=== PATIENT | male | born 1990 | race Caucasian/White ===

== ENCOUNTER 2017-05-01 09:32 | Emergency (ER) | payer OTHER ==
[2017-05-01 09:44] VITALS: BP 134/74; PULSE 67; TEMP 98.2; BMI 39.9
--- NOTE | 2017-05-01 10:24 | PDOC ---
History of Present Illness - General Chief Complaint: Eye Problem Stated Complaint: RT EYE PAIN Time Seen by Provider: 05/01/17 10:23 History Source: Patient Exam Limitations: No Limitations - History of Present Illness Initial Comments: CHIEF COMPLAINT: 26 y/o male with no significant PMH c/o right eye pain x 3 days. HISTORY OF PRESENT ILLNESS: The patient states it hurts the most when he looks up with his right eye. He denies trauma to eye, seeing spots, blurry vision, dry eye, feeling of foreign body in his eye. The patient does not wear contact lenses. Vital signs on arrival are within normal limits. REVIEW OF SYSTEMS: GENERAL/CONSTITUTIONAL: No fever/chills. No weakness. No weight change. HEAD, EYES, EARS, NOSE AND THROAT: No change in vision. No ear pain or discharge. No sore throat. +right eye pain SKIN: No rash or easy bruising. NEUROLOGIC: No headache, vertigo, loss of consciousness, or loss of sensation. PHYSICAL EXAM: GENERAL: The patient is awake, alert, and fully oriented, in no acute distress. HEAD: Normal with no signs of trauma. ENT: Pupils equal, round and reactive to light, extraocular movements intact, sclera anicteric, conjunctiva clear. No entrapment. Wood's lamp exam reveals no corneal abrasions or ulcerations. Distal portion of right upper lid with small internal hordeolum that is TTP. EXTREMITIES: Normal range of motion, no edema. Past History - Past Medical History Allergies/Adverse Reactions: Allergies Allergy/AdvReac Type Severity Reaction Status Date / Time methylphenidate HCl AdvReac Verified 05/01/17 09:40 [From Ritalin] Home Medications: Ambulatory Orders Hydrocortisone 2.5% Lotion [Hytone 2.5% Lotion -] 1 applic TP BID #1 bottle 09/11 Prednisone [Deltasone -] 60 mg PO DAILY #42 tablet 04/06/16 Skin Cleanser Combination No.8 [Zanfel] 1 applic TP TID #1 cleanser 04/06/16 Erythromycin 0.5% Eye Ointment [Erythromycin 0.5% Eye Ointment -] 1 applic OS TID #1 tube 05/01/17 Asthma: Yes - Psycho/Social/Smoking Cessation Hx Anxiety: No Suicidal Ideation: No Smoking Status: Yes Smoking History: Current every day smoker Have you smoked in the past 12 months: Yes Number of Cigarettes Smoked Daily: 5 Information on smoking cessation initiated: No 'Breaking Loose' booklet given: 03/13/16 Hx Alcohol Use: No Drug/Substance Use Hx: No Substance Use Type: None *Physical Exam - Vital Signs Last Vital Signs Temp Pulse Resp BP Pulse Ox 98.2 F 67 19 134/74 98 05/01/17 09:40 05/01/17 09:40 05/01/17 09:40 05/01/17 09:40 05/01/17 09:40 Medical Decision Making - Medical Decision Making A/P: 26 y/o male with right upper hordeolum. Will send rx for erythro eye ointment. Suggested he use for comfort. Also instructed him to apply hot compresses to affected eye 4-5 times per day to help with symptoms. Instructed pt to f/u with special procedures nurse within 1 week if no improvement in symptoms and provided a referral. The patient verbalizes understanding of all instructions, has no further questions and is awaiting discharge. *DC/Admit/Observation/Transfer Diagnosis at time of Disposition: Internal hordeolum of right eye Qualifiers: Eyelid: upper Qualified Code(s): H00.021 - Hordeolum internum right upper eyelid - Discharge Dispostion Disposition: HOME Condition at time of disposition: Good - Prescriptions Prescriptions: Erythromycin 0.5% Eye Ointment [Erythromycin 0.5% Eye Ointment -] 1 applic OS TID #1 tube - Referrals Referrals: Ingrid Corona MD [Primary Care Provider] - Sia Olvera MD [Staff Physician] - (Probate Paralegal) - Patient Instructions Printed Discharge Instructions: DI for Hordeolum Additional Instructions: Discharge Instructions: -Use eye ointment to help with discomfort -Apply hot compresses 4-5 times per day to affected eye -If no improvement in 1 week please call the referred eye doctor for follow up appointment -Return to the ER with any worsening or concerning symptoms
== END 2017-05-01 10:44 | disposition home or self-care (01) ==
LOC: JERFT 09:32
DX: H00.021 Hordeolum internum right upper eyelid (principal); J45.909 Unspecified asthma, uncomplicated; F17.210 Nicotine dependence, cigarettes, uncomplicated
CPT/HCPCS: 99281-25

== ENCOUNTER 2017-11-12 21:19 | Emergency (ER) | payer OTHER ==
[2017-11-12 21:27] VITALS: BP 136/74; PULSE 102; TEMP 97.4; BMI 40.7
--- NOTE | 2017-11-12 21:27 | PDOC ---
Rapid Medical Evaluation Time Seen by Provider: 11/12/17 21:22 Medical Evaluation: Allergies Allergy/AdvReac Type Severity Reaction Status Date / Time methylphenidate HCl AdvReac Verified 05/01/17 09:40 [From Ritalin] 11/12/17 21:22 I have performed a brief in-person evaluation of this patient. The patient presents with a chief complaint of: lower abdominal pain with occasional brown diarrhea. denies bloody stools Pertinent physical exam findings: ABD: TTP LLQ extending into umbilicus I have ordered the following: labs, CT, UA The patient will proceed to the ED for further evaluation. Discharge Disposition - Diagnosis Abdominal pain - Referrals - Patient Instructions - Post Discharge Activity
[2017-11-12 21:45] LABS: BASO % 0.6 % (0-2.0); EOS % 0.8 % (0-4.5); HEMATOCRIT 47.3 % (35.4-49); HEMOGLOBIN 15.7 GM/dL (11.7-16.9); LYMPH % 32.4 % (8-40); MCH 27.9 pg (25.7-33.7); MCHC 33.3 g/dl (32.0-35.9); MEAN CELL VOLUME 83.7 fl (80-96); MEAN PLT VOLUME 7.3 fl (7.5-11.1); MONO % 5.1 % (3.8-10.2); NEUT % 61.1 % (42.8-82.8); PLATELET COUNT 339 K/MM3 (134-434); RBC 5.65 M/mm3 (4.00-5.60); RDW 13.8 % (11.9-15.9); WHITE BLOOD COUNT 13.9 K/mm3 (4.0-10.0)
[2017-11-12 22:04] LABS: URINE APPEARANCE CLEAR; URINE BILIRUBIN NEGATIVE (NEGATIVE); URINE BLOOD NEGATIVE (NEGATIVE); URINE COLOR STRAW; URINE GLUCOSE (UA) NEGATIVE (NEGATIVE); URINE KETONE NEGATIVE (NEGATIVE); URINE LEUK ESTERASE NEGATIVE (NEGATIVE); URINE NITRITE NEGATIVE (NEGATIVE); URINE PROTEIN NEGATIVE (NEGATIVE); URINE UROBILINOGEN NEGATIVE mg/dL (0.2-1.0)
--- NOTE | 2017-11-12 22:30 | PDOC ---
History of Present Illness - General Chief Complaint: Pain Stated Complaint: ABDOMINAL PAIN Time Seen by Provider: 11/12/17 21:22 - History of Present Illness Initial Comments: 11/12/17 22:19 CHIEF COMPLAINT: HISTORY OF PRESENT ILLNESS: 27 yo M with hx of asthma ("haven't had it since I was 14") presents to ED with LLQ abdominal pain and "swollen belly button" since yesterday. Patient denies any nausea, vomiting, diarrhea, or rectal bleeding, and states his last BM was today and was normal. 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 He reports that the pain is localized to the LLQ extending to umbilicus and that the pain is worse "when I am walking, like a 7 or 8." No recent travel or sick contacts. PAST MEDICAL HISTORY: Denies past medical history FAMILY HISTORY: Denies SOCIAL HISTORY: Denies tobacco, alcohol, illicit drug use. SURGICAL HISTORY: Denies ALLERGIES: No known drug allergies REVIEW OF SYSTEMS General/Constitutional: Denies fever or chills. Denies weakness, weight change. HEENT: Denies change in vision. Denies ear pain or discharge. Denies sore throat. Cardiovascular: Denies chest pain or shortness of breath. Respiratory: Denies cough, wheezing, or hemoptysis. Gastrointestinal: Denies nausea, vomiting, diarrhea or constipation. Denies rectal bleeding. Genitourinary: Denies dysuria, frequency, or change in urination. Musculoskeletal: Denies joint or muscle swelling or pain. Denies neck or back pain. Skin and breasts: Denies rash or easy bruising. Neurologic: Denies headache, vertigo, loss of consciousness, or loss of sensation. Psychiatric: Denies depression or anxiety. Endocrine: Denies increased thirst. Denies abnormal weight change. Hematologic/Lymphatic: Denies anemia, easy bleeding, or history of blood clots. Allergic/Immunologic: Denies hives or skin allergy. Denies latex allergy. PHYSICAL EXAM General Appearance: Well-appearing, appropriately dressed. No apparent distress , no intoxication. HEENT: EOMI, PERRLA, normal ENT inspection, normal voice, TMs normal, pharynx normal. No conjunctival pallor. No photophobia, scleral icterus. Neck: Supple. Trachea midline. No tenderness, rigidity, carotid bruit, stridor , lymphadenopathy, or thyromegaly. Respiratory/Chest: Lungs CTAB. No shortness of breath, chest tenderness, respiratory distress, accessory muscle use. No crackles, rales, rhonchi, stridor , wheezing, dullness Cardiovascular: RRR. S1, S2. No JVD, murmur, bradycardia, tachycardia. Vascular Pulses: Dorsalis-Pedis (R): 2+, Dorsalis-Pedis (L): 2+ Gastrointestinal/Abdominal: Normal bowel sounds. Abdomen soft, non-distended. No tenderness or rebound tenderness. No organomegaly, pulsatile mass, guarding , hernia, hepatomegaly, splenomegaly. Lymphatic: No adenopathy, tenderness. Musculoskeletal/Extremities: Normal inspection. FROM of all extremities, normal capillary refill. Pelvis Stable. No CVA tenderness. No tenderness to extremities, pedal edema, swelling, erythema or deformity. Integumentary: Appropriate color, dry, warm. No cyanosis, erythema, jaundice or rash Neurologic: commis chef II-XII intact. Fully oriented, alert. Appropriate mood/affect. Motor strength 5/5. No appreciable EOM palsy, facial droop or sensory deficit. Past History - Past Medical History Allergies/Adverse Reactions: Allergies Allergy/AdvReac Type Severity Reaction Status Date / Time methylphenidate HCl AdvReac Verified 11/12/17 21:25 [From Ritalin] Home Medications: Ambulatory Orders NK [No Known Home Medication] 11/12/17 Asthma: Yes COPD: No - Suicide/Smoking/Psychosocial Hx Smoking Status: Yes Smoking History: Current every day smoker Have you smoked in the past 12 months: Yes Number of Cigarettes Smoked Daily: 10 Information on smoking cessation initiated: No 'Breaking Loose' booklet given: 03/13/16 Hx Alcohol Use: No Drug/Substance Use Hx: No Substance Use Type: None *Physical Exam - Vital Signs Last Vital Signs Temp Pulse Resp BP Pulse Ox 97.4 F L 102 H 20 136/74 97 11/12/17 21:25 11/12/17 21:25 11/12/17 21:25 11/12/17 21:25 11/12/17 21:25 ED Treatment Course - LABORATORY CBC & Chemistry Diagram: 11/12/17 21:36 11/12/17 22:43 - ADDITIONAL ORDERS Additional order review: Laboratory Results 11/12/17 21:30 Urine Color Straw Urine Appearance Clear Urine pH 6.0 Ur Specific [place] 1.011 Urine Protein Negative Urine Glucose (UA) Negative Urine Ketones Negative Urine Blood Negative Urine Nitrite Negative Urine Bilirubin Negative Urine Urobilinogen Negative Ur Leukocyte Esterase Negative 11/12/17 21:36 RBC 5.65 H MCV 83.7 MCHC 33.3 RDW 13.8 MPV 7.3 L Neutrophils % 61.1 Lymphocytes % 32.4 Monocytes % 5.1 Eosinophils % 0.8 Basophils % 0.6 *DC/Admit/Observation/Transfer Diagnosis at time of Disposition: Abdominal pain Qualifiers: Abdominal location: periumbilical Qualified Code(s): R10.33 - Periumbilical pain Umbilical hernia Qualifiers: Obstruction and gangrene presence: without obstruction or gangrene Qualified Code(s): K42.9 - Umbilical hernia without obstruction or gangrene - Discharge Dispostion Disposition: HOME Condition at time of disposition: Stable Admit: No - Referrals Referrals: Cinthia Esteves MD [Staff Physician] - - Patient Instructions Printed Discharge Instructions: DI for Ventral Hernia Additional Instructions: You may taken Motrin for any residual pain. Please follow up with your primary care doctor for continued management. If you develop any new or worsening symptoms, please return to the ER. - Post Discharge Activity Forms/Work/School Notes: Back to Work
[2017-11-12] MEDS ORDERED: KETOROLAC TROMETHAMINE 30 MG/1 ML VIAL IVPUSH ONE (22:46)
[2017-11-12] MEDS ORDERED: SODIUM CHLORIDE 0.9% 1000 ML INFUS.BAG IV ONE (22:46)
[2017-11-12] MEDS ORDERED: KETOROLAC TROMETHAMINE 30 MG/1 ML VIAL ONE (22:51)
[2017-11-12 23:22] LABS: PROTHROMBIN TIME (PATIENT) 11.3 SEC (9.98-11.88)
[2017-11-12 23:58] LABS: ALBUMIN 3.5 g/dl (3.4-5.0); BILIRUBIN,TOTAL 0.2 mg/dL (0.2-1.0); CALCIUM 8.2 mg/dL (8.5-10.1); CHLORIDE 105 mmol/L (98-107); CO2 31 mmol/L (21-32); CREATININE 1.1 mg/dL (0.7-1.3); GLUCOSE,RANDOM 88 mg/dL (74-106); TOT PROT 7.2 g/dl (6.4-8.2)
[2017-11-13 00:11] LABS: ANION GAP 7 (8-16); BLOOD UREA NITROGEN 10 mg/dL (7-18); SGPT/ALT 54 U/L (12-78); SODIUM 143 mmol/L (136-145)
[2017-11-13 00:12] LABS: ALK PHOS 112 U/L (45-117)
[2017-11-13 00:14] LABS: POTASSIUM 3.8 mmol/L (3.5-5.1); SGOT/AST 25 U/L (15-37)
--- NOTE | 2017-11-13 12:30 | EKG ---
Test Reason : Blood Pressure : / mmHG Vent. Rate : 077 BPM Atrial Rate : 077 BPM P-R Int : 144 ms QRS Dur : 094 ms QT Int : 394 ms P-R-T Axes : 027 002 019 degrees QTc Int : 445 ms NORMAL SINUS RHYTHM NORMAL ECG WHEN COMPARED WITH ECG OF 24-OCT-2002 22:37, PREVIOUS ECG IS PRESENT Confirmed by VEE VALENZUELA MD ([id number]) on 11/13/2017 12:30:13 PM Referred By: Confirmed By:VEE VALENZUELA MD
== END 2017-11-13 03:11 | disposition home or self-care (01) ==
LOC: JER 21:19
PROC: 3E0333Z Introduction of Anti-inflammatory into Peripheral Vein, Percutaneous Approach (ICD-10-PCS; principal; 2017-11-12)
DX: K42.9 Umbilical hernia without obstruction or gangrene (principal)
CPT/HCPCS: 36415; 74177-TC; 80053; 81003; 85025; 85610; 87086; 93005; 93010; 99282-25; Q9967

== ENCOUNTER 2018-03-26 13:24 | Emergency (ER) | payer OTHER ==
[2018-03-26 13:32] VITALS: BP 128/86; PULSE 114; TEMP 98.6; BMI 34.1
--- NOTE | 2018-03-26 14:37 | PDOC ---
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 Patient denies any bites. Patient has no complaints. GENERAL/CONSTITUTIONAL: No fever, weakness. dizziness HEAD, EYES, EARS, NOSE AND THROAT: No change in vision. No ear pain or discharge. No sore throat. CARDIOVASCULAR: No chest pain RESPIRATORY: No shortness of breath or cough GASTROINTESTINAL: No pain, nausea, vomiting, diarrhea or constipation GENITOURINARY: No dysuria MUSCULOSKELETAL: No neck or back pain SKIN: No rash NEUROLOGIC: No headache, vertigo, loss of consciousness, or loss of sensation. GENERAL: The patient is awake, alert, and fully oriented, in no acute distress. HEAD: Normal with no signs of trauma. EYES: Pupils equal, round and reactive to light, sclera anicteric, conjunctiva clear. ENT: pharynx: no erythema, no exudate, uvula midline NECK: supple CHEST: clear, nontender, rr ABD: soft, nontender EXTREMITIES: Normal range of motion, no edema. NEUROLOGICAL: Normal speech, normal gait. SKIN: Warm, Dry Past History - Past Medical History Allergies/Adverse Reactions: Allergies Allergy/AdvReac Type Severity Reaction Status Date / Time methylphenidate HCl AdvReac Verified 03/26/18 13:26 [From Ritalin] Home Medications: Ambulatory Orders NK [No Known Home Medication] 11/12/17 Asthma: Yes COPD: No - Suicide/Smoking/Psychosocial Hx Smoking Status: Yes Smoking History: Current every day smoker Have you smoked in the past 12 months: Yes Number of Cigarettes Smoked Daily: 10 Information on smoking cessation initiated: Yes 'Breaking Loose' booklet given: 03/26/18 Hx Alcohol Use: No Drug/Substance Use Hx: No Substance Use Type: None *Physical Exam - Vital Signs Last Vital Signs Temp Pulse Resp BP Pulse Ox 98.6 F 114 H 18 128/86 100 03/26/18 13:26 03/26/18 13:26 03/26/18 13:26 03/26/18 13:26 03/26/18 13:26 Medical Decision Making - Medical Decision Making 03/26/18 14:33 Patient who had bugs underclothing, questionable ticks after work, no bites, who was worried and wanted to be evaluated. *DC/Admit/Observation/Transfer Diagnosis at time of Disposition: Environmental exposure - Discharge Dispostion Disposition: HOME Condition at time of disposition: Stable Decision to Admit order: No - Referrals - Patient Instructions Additional Instructions: You were not bitten by any of the insects or ticks that you found. If you have fever or feel ill, you should be reevaluated - Post Discharge Activity
== END 2018-03-26 14:51 | disposition home or self-care (01) ==
LOC: JERFT 13:24 → JER 13:24 → JERFT 14:51
DX: T75.89XA Other specified effects of external causes, initial encounter (principal); X58.XXXA Exposure to other specified factors, initial encounter; Y93.89 Activity, other specified; Y92.89 Other specified places as the place of occurrence of the external cause
CPT/HCPCS: 99281-25

== ENCOUNTER 2018-04-16 08:40 | Emergency (ER) | payer OTHER ==
[2018-04-16 08:48] VITALS: BP 120/72; PULSE 86; TEMP 98; BMI 34.1
[2018-04-16] MEDS ORDERED: KETOROLAC TROMETHAMINE 60 MG/2 ML VIAL IM ONE (08:58)
--- NOTE | 2018-04-16 09:13 | PDOC ---
History of Present Illness - General Chief Complaint: Eye Problem Stated Complaint: HEADACHE, EYE PAIN Time Seen by Provider: 04/16/18 08:52 History Source: Patient Exam Limitations: No Limitations - History of Present Illness Initial Comments: 04/16/18 08:59 27 yr male with c/o headache and sensitivity to light started 1 week ago. Pt states bilateral temporal pain with pain behind eyes, pt noticed red eye this AM. neg nausea or vomiting, pt recently was written a new prescription for eyeglasses but has not been wearing them. Pt has history of ADHD asthma not on meds currently. no fever no recent head injury. Severity: mild Past History - Past Medical History Allergies/Adverse Reactions: Allergies Allergy/AdvReac Type Severity Reaction Status Date / Time methylphenidate HCl AdvReac Verified 04/16/18 08:45 [From Ritalin] Home Medications: Ambulatory Orders Naproxen [Naprosyn] 500 mg PO BID PRN #14 tablet 04/16/18 Asthma: Yes COPD: No - Suicide/Smoking/Psychosocial Hx Smoking Status: Yes Smoking History: Current every day smoker Have you smoked in the past 12 months: Yes Number of Cigarettes Smoked Daily: 5 Information on smoking cessation initiated: Yes 'Breaking Loose' booklet given: 03/13/16 Hx Alcohol Use: Yes (occasional) Drug/Substance Use Hx: No Substance Use Type: None Review of Systems - Review of Systems Able to Perform ROS?: Yes Is the patient limited Kyrgyz proficient: No Constitutional: No: Symptoms Reported HEENTM: Yes: Eye Pain, Recent change in vision *Physical Exam - Vital Signs Last Vital Signs Temp Pulse Resp BP Pulse Ox 98 F 86 16 120/72 99 04/16/18 08:45 04/16/18 08:45 04/16/18 08:45 04/16/18 08:45 04/16/18 08:45 - Physical Exam General Appearance: Yes: Nourished, Appropriately Dressed HEENT: positive: EOMI, GEE, Other (right eye bloodshot no discharge ) Neck: positive: Supple. negative: Tender Respiratory/Chest: positive: Lungs Clear, Normal Breath Sounds Cardiovascular: positive: Regular Rhythm, Regular Rate Musculoskeletal: positive: Normal Inspection Extremity: positive: Normal Capillary Refill, Normal Inspection, Normal Range of Motion Integumentary: positive: Normal Color, Dry, Warm Neurologic: positive: Fully Oriented, Alert, Normal Mood/Affect, Normal Response , Motor Strength 5/5 ED Treatment Course - RADIOLOGY Radiology Studies Ordered: Category Date Time Status HEAD CT WITHOUT CONTRAST [CT] Stat CT Scan 04/16/18 08:58 Ordered Medical Decision Making - Medical Decision Making 04/16/18 09:03 cc: bilateral congregational headache pain behind eyes with some light sensitivity pt denies fever no neck pain will send for head ct if negative will give toradol IM for headache dc home strict follow up 04/16/18 09:25 *DC/Admit/Observation/Transfer Diagnosis at time of Disposition: Headache Qualifiers: Headache type: tension-type Headache chronicity pattern: acute headache Intractability: not intractable Qualified Code(s): G44.209 - Tension-type headache, unspecified, not intractable - Discharge Dispostion Disposition: HOME Condition at time of disposition: Good - Prescriptions Prescriptions: Naproxen [Naprosyn] 500 mg PO BID PRN #14 tablet PRN Reason: Headache - Referrals Referrals: Onur Moss MD [Staff Physician] - - Patient Instructions Additional Instructions: drink pleanty of fluids take naprosyn as directed follow with the neurologist for headaches if they continue or worsen use the prescription eyeglasses you have been given return to the ER for any worsening symptoms - Post Discharge Activity
[2018-04-16] MEDS ORDERED: KETOROLAC TROMETHAMINE 60 MG/2 ML VIAL ONE (09:53)
== END 2018-04-16 10:01 | disposition home or self-care (01) ==
LOC: JER 08:40
PROC: 3E0233Z Introduction of Anti-inflammatory into Muscle, Percutaneous Approach (ICD-10-PCS; principal; 2018-04-16)
DX: G44.209 Tension-type headache, unspecified, not intractable (principal); J45.909 Unspecified asthma, uncomplicated; F90.9 Attention-deficit hyperactivity disorder, unspecified type
CPT/HCPCS: 70450-TC; 99281-25

== ENCOUNTER 2018-06-20 10:30 | Emergency (ER) | payer OTHER ==
[2018-06-20 10:35] VITALS: BP 127/72; PULSE 66; TEMP 97.6; BMI 32.4
--- NOTE | 2018-06-20 11:08 | PDOC ---
History of Present Illness - General Stated Complaint: ALLERGIC REACTION Time Seen by Provider: 06/20/18 10:52 History Source: Patient Exam Limitations: No Limitations - History of Present Illness Initial Comments: CHIEF COMPLAINT: 27 y/o afebrile male with no significant PMH c/o poison elda rash. HISTORY OF PRESENT ILLNESS: Patient works for [employer]. He states he noticed slight rash yesterday that is worse today. He denies all other symptoms. Vital signs on arrival are within normal limits. REVIEW OF SYSTEMS: GENERAL/CONSTITUTIONAL: No fever/chills. HEAD, EYES, EARS, NOSE AND THROAT: No change in vision. No ear pain or discharge. No sore throat. RESPIRATORY: No cough, wheezing, or hemoptysis. SKIN: itchy rash to arms NEUROLOGIC: No headache, vertigo, loss of consciousness, or loss of sensation. PHYSICAL EXAM: GENERAL: The patient is awake, alert, and fully oriented, in no acute distress. He is well appearing. HEAD: Normal with no signs of trauma. No angioedema. EXTREMITIES: Normal range of motion, no edema. NEUROLOGICAL: Normal speech, normal gait. CN II-XII grossly intact. SKIN: skin colored blisters on b/l arms. Past History - Past Medical History Allergies/Adverse Reactions: Allergies Allergy/AdvReac Type Severity Reaction Status Date / Time methylphenidate HCl AdvReac Verified 06/20/18 10:31 [From Ritalin] Home Medications: Ambulatory Orders Hydrocortisone 0.5% Cream [Hytone 0.5% Cream -] 1 applic TP BID #1 tube Methylprednisolone [Medrol Dose Jose Enrique] 4 mg PO ASDIR #21 tablet 06/20/18 Asthma: Yes COPD: No - Suicide/Smoking/Psychosocial Hx Smoking Status: Yes Smoking History: Current every day smoker Have you smoked in the past 12 months: Yes Number of Cigarettes Smoked Daily: 8 Information on smoking cessation initiated: Yes 'Breaking Loose' booklet given: 03/13/16 Hx Alcohol Use: No Drug/Substance Use Hx: No Substance Use Type: None *Physical Exam - Vital Signs Last Vital Signs Temp Pulse Resp BP Pulse Ox 97.6 F 66 16 127/72 98 06/20/18 10:32 06/20/18 10:32 06/20/18 10:32 06/20/18 10:32 06/20/18 10:32 Medical Decision Making - Medical Decision Making A/P: 27 y/o male with poison elda dermatitis. Will d/c with rx for medrol dose pack and topical hydrocortisone cream. Patient instructed to return to the ER with any worsening or concerning symptoms. The patient verbalizes understanding of all instructions, has no further questions and is awaiting discharge. *DC/Admit/Observation/Transfer Diagnosis at time of Disposition: Poison elda dermatitis - Discharge Dispostion Disposition: HOME Condition at time of disposition: Good - Referrals - Patient Instructions Printed Discharge Instructions: DI for Poison Elda Allergy Additional Instructions: Discharge Instructions: -2 prescriptions have been sent to your pharmacy for treatment of poison elda -Return to the ER with any worsening or concerning symptoms - Post Discharge Activity
== END 2018-06-20 11:42 | disposition home or self-care (01) ==
LOC: JERFT 10:30
DX: L23.7 Allergic contact dermatitis due to plants, except food (principal)
CPT/HCPCS: 99281-25

== ENCOUNTER 2018-07-08 19:54 | Emergency (ER) | payer OTHER ==
[2018-07-08 19:59] VITALS: BP 123/76; PULSE 107; TEMP 98.6; BMI 32.8
--- NOTE | 2018-07-08 20:33 | PDOC ---
History of Present Illness - General Chief Complaint: Rash Stated Complaint: BITE Time Seen by Provider: 07/08/18 20:25 - History of Present Illness Initial Comments: 27-year-old male without comorbidities presents for evaluation of a rash after bee sting which occurred yesterday. He has no other associated symptoms. 07/08/18 20:28 Past History - Past Medical History Allergies/Adverse Reactions: Allergies Allergy/AdvReac Type Severity Reaction Status Date / Time methylphenidate HCl AdvReac Verified 07/08/18 19:58 [From Ritalin] Home Medications: Ambulatory Orders Methylprednisolone [Medrol Dose Jose Enrique] 4 mg PO ASDIR #21 tablet 07/08/18 Asthma: Yes COPD: No - Suicide/Smoking/Psychosocial Hx Smoking Status: Yes Smoking History: Smoker current status UNK Have you smoked in the past 12 months: Yes Number of Cigarettes Smoked Daily: 8 Information on smoking cessation initiated: No 'Breaking Loose' booklet given: 03/13/16 Hx Alcohol Use: No Drug/Substance Use Hx: No Substance Use Type: None Review of Systems - Review of Systems Integumentary: Yes: Rash All Other Systems: Reviewed and Negative *Physical Exam - Vital Signs Last Vital Signs Temp Pulse Resp BP Pulse Ox 98.6 F 107 H 18 123/76 97 07/08/18 19:55 07/08/18 19:55 07/08/18 19:55 07/08/18 19:55 07/08/18 19:55 - Physical Exam Comments: HEAD: NC/AT EYES: Conjuntiva clear Ears: Canals and TM's normal NOSE: No d/c THROAT: Moist mucous membrances, oral pharanx clear, uvula midline NECK: Supple without adenopathy CARDIAC: S1 S2 LUNGS: CTA Full and Equal breath sounds ABDOMEN: Soft NT ND MS: Full ROM in all joints without edema NEUROLOGIC: No gross sensory or motor deficits, NVID SKIN: Normal color and temperature there is a rasied hive on the volar aspect of the L wrist and mild swelling without erythema, induration, or sensitivity on the volar aspect of the R forearm, 07/08/18 20:29 Medical Decision Making - Medical Decision Making Mild allergic reaction to bee sting. 07/08/18 20:30 *DC/Admit/Observation/Transfer Diagnosis at time of Disposition: Bee sting allergy - Discharge Dispostion Disposition: HOME Condition at time of disposition: Stable Decision to Admit order: No - Prescriptions Prescriptions: Methylprednisolone [Medrol Dose Jose Enrique] 4 mg PO ASDIR #21 tablet - Referrals Referrals: Jv Rich [Non Staff, Medical] - - Patient Instructions Printed Discharge Instructions: Insect Bites and Stings (Alternative Therapy), DI for Insect Bites and Stings Additional Instructions: Return to the ER should symptoms worsen or go unresolved Follow up with PCP in 1 -2 days. - Post Discharge Activity
== END 2018-07-08 20:35 | disposition home or self-care (01) ==
LOC: JERFT 19:54
DX: T63.441A Toxic effect of venom of bees, accidental (unintentional), initial encounter (principal); Y92.89 Other specified places as the place of occurrence of the external cause
CPT/HCPCS: 99281-25

== ENCOUNTER 2018-09-01 15:47 | Emergency (ER) | payer OTHER ==
[2018-09-01 15:54] VITALS: BP 127/77; PULSE 88; TEMP 98.5; BMI 31.6
--- NOTE | 2018-09-01 15:55 | PDOC ---
Rapid Medical Evaluation Chief Complaint: Headache Time Seen by Provider: 09/01/18 15:52 Medical Evaluation: Allergies Allergy/AdvReac Type Severity Reaction Status Date / Time methylphenidate HCl AdvReac Verified 07/08/18 19:58 [From Ritalin] 09/01/18 15:53 I have performed a brief in person evaluation of the patient. The patient presents with a CC of: SANTOS Pt has a SANTOS x 2-3 days. Pt denies hx of migraines, denies n/v. Pt denies thunderclap sensation prior to its initiation. Pt denies this being the worst SANTOS of his life. Pain is a 5/10 PE: Skin: No visible rash Lungs: Clear Heart:RRR MS: Moves all extremities without difficulty Neuro: Alert and oriented Psych: Appropriate affect I have ordered the following: nothing at this time. The patient will proceed to the [facility] for further evaluation. Discharge Disposition - Diagnosis Headache Qualifiers: Headache type: unspecified - Referrals - Patient Instructions - Post Discharge Activity
[2018-09-01] MEDS ORDERED: KETOROLAC TROMETHAMINE 60 MG/2 ML VIAL IM ONE (16:26)
[2018-09-01] MEDS ORDERED: ACETAMINOPHEN 500 MG TABLET (FP) PO ONE (16:26)
[2018-09-01] MEDS ORDERED: ACETAMINOPHEN 500 MG TABLET (FP) ONE (16:30)
--- NOTE | 2018-09-01 16:42 | PDOC ---
History of Present Illness - General Chief Complaint: Headache Stated Complaint: HEADACHE Time Seen by Provider: 09/01/18 15:52 - History of Present Illness Initial Comments: 09/01/18 16:28 28-year-old male without comorbidities presents for evaluation of headache and a painful mass behind his right ear 3 days. He states his headache is typical of his usual headaches he has not taken anything for pain his headache was not abrupt onset and is not the worst headache of his life he describes as a bandlike pressure around his head. The mass behind his right ear has been there for about 3 days as well and he states getting smaller he has no other associated symptoms. Past History - Past Medical History Allergies/Adverse Reactions: Allergies Allergy/AdvReac Type Severity Reaction Status Date / Time methylphenidate HCl AdvReac Verified 09/01/18 15:55 [From Ritalin] Asthma: Yes COPD: No - Suicide/Smoking/Psychosocial Hx Smoking Status: Yes Smoking History: Current every day smoker Have you smoked in the past 12 months: Yes Number of Cigarettes Smoked Daily: 10 Information on smoking cessation initiated: No 'Breaking Loose' booklet given: 03/13/16 Hx Alcohol Use: No Drug/Substance Use Hx: No Substance Use Type: None Review of Systems - Review of Systems Constitutional: No: Chills, Fever, Malaise, Night Sweats Integumentary: Yes: See HPI, Lesions Neurological: Yes: Headache *Physical Exam - Vital Signs Last Vital Signs Temp Pulse Resp BP Pulse Ox 98.5 F 88 18 127/77 99 09/01/18 15:52 09/01/18 15:52 09/01/18 15:52 09/01/18 15:52 09/01/18 15:52 - Physical Exam Comments: 09/01/18 16:29 HEAD: NC/AT, There is mild swelling without fluctuance induration or tenderness about the right mastoid EYES: Conjuntiva clear EOMI, PERRL Ears: Canals and TM's normal NOSE: No d/c THROAT: Moist mucous membrances, oral pharanx clear, uvula midline NECK: Supple without adenopathy CARDIAC: S1 S2 LUNGS: CTA Full and Equal breath sounds ABDOMEN: Soft NT ND MS: Full ROM in all joints without edema NEUROLOGIC: No gross sensory or motor deficits, NVID SKIN: Normal color and temperature no lesions or rashes 09/01/18 16:32 *DC/Admit/Observation/Transfer Diagnosis at time of Disposition: Sebaceous cyst Headache Qualifiers: Headache type: unspecified - Discharge Dispostion Disposition: HOME Condition at time of disposition: Improved Decision to Admit order: No - Referrals Referrals: Humphrey Reilly MD [Non Staff, Medical] - Linette Patel [Non Staff, Medical] - Ning Navarro MD [Staff Physician] - Shelby Duarte MD [Non Staff, Medical] - Erica Frederick MD [Non Staff, Medical] - Cherie Jonas MD [Non Staff, Medical] - Evelyn Aguilera [Non Staff, Medical] - Elpidio Pedro [Non Staff, Medical] - Frida Avalos MD [Non Staff, Medical] - Chris Zuniga MD [Non Staff, Medical] - Koby Christian MD [Non Staff, Medical] - Natasha Chew MD [Non Staff, Medical] - Ambrosio Jernigan [Non Staff, Medical] - - Patient Instructions Printed Discharge Instructions: DI for Headache Additional Instructions: Return to the emergency room should symptoms worsen or go unresolved please follow-up with the primary care doctor I recommended for you with the next 1-2 days for further evaluation and treatment options. He take Tylenol and Motrin as directed for pain. - Post Discharge Activity
== END 2018-09-01 16:45 | disposition home or self-care (01) ==
LOC: JERFT 15:47
DX: R51 Headache (principal); L72.3 Sebaceous cyst; Z87.09 Personal history of other diseases of the respiratory system; F17.210 Nicotine dependence, cigarettes, uncomplicated
CPT/HCPCS: 99281-25

== ENCOUNTER 2018-10-31 09:21 | Emergency (ER) | payer OTHER ==
[2018-10-31 09:28] VITALS: BP 118/67; PULSE 81; TEMP 97.9; BMI 36.1
[2018-10-31] MEDS ORDERED: predniSONE 20 MG TABLET (UD) PO ONE (09:42)
[2018-10-31] MEDS ORDERED: diphenhydrAMINE HCL 25 MG CAPSULE (FP) PO ONE ×2 (09:42→09:45)
[2018-10-31] MEDS ORDERED: predniSONE 20 MG TABLET (UD) ONE (09:45)
--- NOTE | 2018-10-31 09:47 | PDOC ---
History of Present Illness - General Chief Complaint: Poison [place],Poison [place] Exposure Stated Complaint: POISON LOUIS Time Seen by Provider: 10/31/18 09:34 History Source: Patient Exam Limitations: No Limitations - History of Present Illness Initial Comments: 10/31/18 09:43 28 y/o male with no past medical history presents to ED with generalized itching and rash to face extremities and neck 2 days. Patient states was removing branches that had poison louis or poison oak on it and noticed a rash 2 days after . Pt has no other complaints at this time. Patient denies difficulty breathing, difficulty swallowing, Timing/Duration: reports: getting worse, yesterday Severity: Yes: mild Location: reports: generalized Respiratory Risk Factors: reports: other (poison oak/louis?) Associated Symptoms: reports: rash Past History - Travel Traveled outside of the country in the last 30 days: No - Past Medical History Allergies/Adverse Reactions: Allergies Allergy/AdvReac Type Severity Reaction Status Date / Time methylphenidate HCl AdvReac Verified 10/31/18 09:25 [From Ritalin] Home Medications: Ambulatory Orders NK [No Known Home Medication] 09/01/18 Asthma: Yes COPD: No - Immunization History Immunization Up to Date: Yes - Suicide/Smoking/Psychosocial Hx Smoking Status: Yes Smoking History: Current every day smoker Have you smoked in the past 12 months: Yes Number of Cigarettes Smoked Daily: 7 Information on smoking cessation initiated: No 'Breaking Loose' booklet given: 03/13/16 Hx Alcohol Use: No Drug/Substance Use Hx: No Substance Use Type: None Patient Lives Alone: No Lives with/in: spouse/SO Review of Systems - Review of Systems Able to Perform ROS?: Yes Constitutional: No: Symptoms Reported Integumentary: Yes: Pruritus, Rash Neurological: No: Symptoms reported *Physical Exam - Vital Signs Last Vital Signs Temp Pulse Resp BP Pulse Ox 97.9 F 81 18 118/67 99 10/31/18 09:25 10/31/18 09:25 10/31/18 09:25 10/31/18 09:25 10/31/18 09:25 - Physical Exam General Appearance: Yes: Nourished, Appropriately Dressed. No: Apparent Distress Neck: positive: Supple Respiratory/Chest: positive: Lungs Clear, Normal Breath Sounds. negative: Respiratory Distress, Accessory Muscle Use Cardiovascular: positive: Regular Rhythm, Regular Rate. negative: Murmur Integumentary: positive: Other (Noted clusters of vesicular papular rash to right neck, bilateral wrists, and upper chest.) Neurologic: positive: Motor Strength 5/5 (ambulatory) Moderate Sedation - Procedure Monitoring Vital Signs: Procedure Monitoring Vital Signs Temperature 97.9 F 10/31/18 09:25 Pulse Rate 81 10/31/18 09:25 Respiratory Rate 18 10/31/18 09:25 Blood Pressure 118/67 10/31/18 09:25 O2 Sat by Pulse Oximetry (%) 99 10/31/18 09:25 Medical Decision Making - Medical Decision Making 10/31/18 09:46 chief complaint: Rash to body after removing poison louis/poison oak. Exam: Active contact dermatitis involving the upper extremities and torso and neck Plan: Due to the generalization of rash patient will be ordered for prednisone and Benadryl and discharged home with the same. Patient given supportive care instructions for discharge.
== END 2018-10-31 09:52 | disposition home or self-care (01) ==
LOC: JERFT 09:21
DX: L23.7 Allergic contact dermatitis due to plants, except food (principal)
CPT/HCPCS: 99281-25

== ENCOUNTER 2019-05-07 17:02 | Emergency (ER) | payer OTHER ==
[2019-05-07 17:18] VITALS: BP 135/81; PULSE 100; TEMP 98.4; BMI 39.5
[2019-05-07] MEDS ORDERED: DEXAMETHASONE SOD PHOSPHATE 10 MG/1 ML VIAL ONE (17:44)
[2019-05-07] MEDS ORDERED: DEXAMETHASONE LIQUID 0.5 MG/5 ML 240 ML BULK BOTTLE PO ONE (17:45)
--- NOTE | 2019-05-07 17:49 | PDOC ---
History of Present Illness - General Chief Complaint: Rash Stated Complaint: RASH Time Seen by Provider: 05/07/19 17:29 History Source: Patient Exam Limitations: No Limitations Past History - Travel Traveled outside of the country in the last 30 days: No Close contact w/someone who was outside of country & ill: No - Past Medical History Allergies/Adverse Reactions: Allergies Allergy/AdvReac Type Severity Reaction Status Date / Time methylphenidate HCl AdvReac Verified 05/07/19 17:18 [From Ritalin] Home Medications: Ambulatory Orders predniSONE [Deltasone -] 20 mg PO ASDIR #30 tablet 05/07/19 Asthma: Yes COPD: No - Immunization History Immunization Up to Date: Yes - Suicide/Smoking/Psychosocial Hx Smoking Status: Yes Smoking History: Current every day smoker Have you smoked in the past 12 months: Yes Number of Cigarettes Smoked Daily: 5 Information on smoking cessation initiated: No 'Breaking Loose' booklet given: 03/13/16 Hx Alcohol Use: No Drug/Substance Use Hx: No Substance Use Type: None Review of Systems - Review of Systems Able to Perform ROS?: Yes Comments:: 05/07/19 17:43 CONSTITUTIONAL: Absent: fever, chills, diaphoresis, generalized weakness, malaise, loss of appetite HEENT: Absent: rhinorrhea, nasal congestion, throat pain, throat swelling, difficulty swallowing, mouth swelling, ear pain, eye pain, visual Changes SKIN: Present: rash, itching Absent: pallor NEUROLOGIC: Absent: headache, focal weakness or paresthesias, dizziness, unsteady gait, seizure, mental status changes, bladder or bowel incontinence PSYCHIATRIC: Absent: anxiety, depression, suicidal or homicidal ideation, hallucinations. Is the patient limited Urdu proficient: No *Physical Exam - Vital Signs Last Vital Signs Temp Pulse Resp BP Pulse Ox 98.4 F 100 H 16 135/81 96 05/07/19 17:14 05/07/19 17:14 05/07/19 17:14 05/07/19 17:14 05/07/19 17:14 - Physical Exam Comments: 05/07/19 17:51 GENERAL: The patient is awake, alert, and fully oriented, in no acute distress. HEAD: Normal with no signs of trauma. EYES: Pupils equal, round and reactive to light, extraocular movements intact, sclera anicteric, conjunctiva clear. EXTREMITIES: Normal range of motion, no edema. NEUROLOGICAL: Normal speech, normal gait. PSYCH: Normal mood, normal affect. SKIN: Vesicles to the hands and forearms bilaterally. Warm, Dry, normal turgor. Medical Decision Making - Medical Decision Making 05/07/19 17:52 The patient is a 28-year-old male with a rash to his forearms for the past 2 days. 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 States that the rash broke out shortly after. Took benadryl with some relief of symptoms. Denies diff breathing and SOB, and throat itching A/P: Contact dermatitis from poison elda/sumac Pt with vesicles to the forearms consistent with a contact dermatitis First dose of dex given at this time Prednisone pack given for continued coverage DC home I discussed the physical exam findings, ancillary test results and final diagnoses with the patient. I answered all of the patient's questions. The patient was satisfied with the care received and felt comfortable with the discharge plan and treatment plan. The Patient agrees to follow up with the primary care physician/specialist within 24-72 hours. Return precautions were given. *DC/Admit/Observation/Transfer Diagnosis at time of Disposition: Poison elda dermatitis - Discharge Dispostion Disposition: HOME Condition at time of disposition: Stable Decision to Admit order: No - Referrals Referrals: Saeed Gutierrez MD [Staff Physician] - - Patient Instructions Printed Discharge Instructions: DI for Poison Elda Allergy Additional Instructions: You were evaluated for your rash today It is most likely from poison elda/sumac Take the predisone as directed You may take a daily Zyrtec as well Take Benadryl 25mg every 8 hours as needed for itching Follow up with your primary care doctor this week Return to the ER for any new or worsening symptoms - Post Discharge Activity Forms/Work/School Notes: Back to Work
== END 2019-05-07 18:01 | disposition home or self-care (01) ==
LOC: JERFT 17:02
DX: L23.7 Allergic contact dermatitis due to plants, except food (principal); F17.210 Nicotine dependence, cigarettes, uncomplicated
CPT/HCPCS: 99281-25

== ENCOUNTER 2019-11-18 17:07 | Emergency (ER) | payer SELFPAY ==
[2019-11-18 17:19] VITALS: TEMP 97.9; BMI 38.3
--- NOTE | 2019-11-18 17:19 | PDOC ---
Rapid Medical Evaluation Time Seen by Provider: 11/18/19 17:15 Medical Evaluation: Allergies Allergy/AdvReac Type Severity Reaction Status Date / Time methylphenidate HCl AdvReac Verified 11/18/19 17:15 [From Ritalin] 11/18/19 17:15 CC: umbilical hernia PE: hernia to left side of umbilicus. Unable to reduce 2/2 pain Orders: nothing Patient will proceed to ER for complete evaluation. Discharge Disposition - Diagnosis Umbilical hernia - Referrals - Patient Instructions - Post Discharge Activity
[2019-11-18] MEDS ORDERED: SODIUM CHLORIDE 0.9% 500 ML INFUS.BAG IV ONE (18:14)
--- NOTE | 2019-11-18 18:24 | PDOC ---
History of Present Illness - General Chief Complaint: Pain Stated Complaint: ABD PAIN Time Seen by Provider: 11/18/19 17:15 History Source: Patient Exam Limitations: No Limitations - History of Present Illness Initial Comments: 11/18/19 18:18 29-year-old male denies past medical history presents complaining of constant umbilical and left mid abdominal pain x 3 days. 7 days ago had productive cough , subjective fever, chills, body aches, frontal headache and loose stools which improved with supportive care. Last normal bowel movement was today, passing flatus. Denies nausea, vomiting, diarrhea, recent antibiotic use, recent travel , back pain, urinary symptoms or any other complaint. Took ibuprofen p.o. yesterday without relief of pain. Admits to heavy lifting at work 2 days ago. ROS: GENERAL/CONSTITUTIONAL: No fever, chills, weakness, dizziness HEAD, EYES, EARS, NOSE AND THROAT: No changes in vision, No ear pain or discharge, No sore throat CARDIOVASCULAR: No chest pain RESPIRATORY: No shortness of breath or cough GASTROINTESTINAL: Umbilical and left mid abdominal pain, denies nausea, vomiting , diarrhea or constipation GENITOURINARY: No dysuria MUSCULOSKELETAL: No neck or back pain SKIN: No rash NEUROLOGIC: No headache, vertigo, loss of consciousness, or loss of sensation PE: GENERAL: well-appearing, NAD HEAD: NCAT EYES: Pupils equal, round and reactive to light, sclera anicteric, conjunctiva clear ENT: pharynx: no erythema, no exudate, uvula midline NECK: supple CHEST: nontender RESP: clear, no w/r/r CARDIO: rrr, no m/g/r ABD: +BS, soft, skin colored grape size protrusion noted to left side of umbilicus, left mid abdomen tender to palpation, no guarding, no rebound, non distended BACK: no midline spinal ttp, no CVAT EXTREMITIES: Normal range of motion, no edema NEUROLOGICAL: Normal speech, normal gait SKIN: Warm, Dry Is this a multiple visit Asthma Patient?: No Past History - Past Medical History Allergies/Adverse Reactions: Allergies Allergy/AdvReac Type Severity Reaction Status Date / Time methylphenidate HCl AdvReac Verified 11/18/19 17:15 [From Ritalin] Home Medications: Ambulatory Orders predniSONE [Deltasone -] 20 mg PO ASDIR #30 tablet 05/07/19 Asthma: Yes COPD: No - Immunization History Immunization Up to Date: Yes - Psycho Social/Smoking Cessation Hx Smoking Status: Yes Smoking History: Current every day smoker Have you smoked in the past 12 months: Yes Number of Cigarettes Smoked Daily: 5 Information on smoking cessation initiated: No 'Breaking Loose' booklet given: 03/13/16 Hx Alcohol Use: No Drug/Substance Use Hx: No Substance Use Type: None *Physical Exam - Vital Signs Last Vital Signs Temp Pulse Resp BP Pulse Ox 97.9 F 69 18 134/72 97 11/18/19 17:15 11/18/19 17:15 11/18/19 17:15 11/18/19 17:15 11/18/19 17:15 ED Treatment Course - RADIOLOGY Radiology Studies Ordered: Category Date Time Status ABDOMEN & PELVIS CT WITH CONTR [CT] Stat CT Scan 11/18/19 18:13 Ordered Medical Decision Making - Medical Decision Making 11/18/19 18:24 29-year-old male with recent URI noticed umbilical swelling with tenderness and left mid abdominal constant pain x3 days. Denies nausea, vomiting, fever, chills, back pain, urinary symptoms or any other complaints. Ordered labs CTAP w/con IVF Reassess 11/18/19 18:38 Signed out to ROBERTA Lara Discharge - Discharge Information Problems reviewed: Yes Clinical Impression/Diagnosis: Umbilical hernia, Abdominal pain Condition: Stable - Follow up/Referral - Patient Discharge Instructions - Post Discharge Activity
--- NOTE | 2019-11-18 18:52 | PDOC ---
*Physical Exam - Vital Signs Last Vital Signs Temp Pulse Resp BP Pulse Ox 97.9 F 69 18 134/72 97 11/18/19 17:15 11/18/19 17:15 11/18/19 17:15 11/18/19 17:15 11/18/19 17:15 ED Treatment Course - LABORATORY CBC & Chemistry Diagram: 11/18/19 18:22 11/18/19 18:22 - RADIOLOGY Radiology Studies Ordered: Category Date Time Status ABDOMEN & PELVIS CT WITH CONTR [CT] Stat CT Scan 11/18/19 18:13 Ordered - Medications Given in the ED: ED Medications Discontinued Medications Generic Name Dose Route Start Last Admin Trade Name Freq PRN Reason Stop Dose Admin Sodium Chloride 1,000 ml 11/18/19 18:14 11/18/19 18:33 Normal Saline - IV 11/18/19 18:15 1,000 ml ONCE ONE Administration Medical Decision Making - Medical Decision Making Patient signed out to me by ROBERTA Ni Patient with periumbilical pain x 3 days denies vomiting Last meal at 1 PM Is passing BM On exam, patient with small protrusion along umbilical region with TTP, no skin color changes noted Likely umbilical hernia Patient to go for CT A/P to r/o possible incarcerated or strangulated hernia 11/18/19 18:38 CT shows small fat containing hernia other findings d/w patient stable for dc 11/18/19 20:25 Discharge - Discharge Information Problems reviewed: Yes Clinical Impression/Diagnosis: Umbilical hernia Qualifiers: Obstruction and gangrene presence: without obstruction or gangrene Qualified Code(s): K42.9 - Umbilical hernia without obstruction or gangrene Condition: Stable Disposition: HOME - Admission No - Follow up/Referral Referrals: Wade Man MD [Staff Physician] - 2 Days - Patient Discharge Instructions Patient Printed Discharge Instructions: Abdominal Hernia Additional Instructions: Thank you for choosing [facility]. It was a pleasure taking care of you. You were found to have fat containing hernia You may wear abdominal binder if lifting anything heavy Recommend weight loss You were referred to surgeon for further evaluation Return to the Emergency Department if your symptoms worsen or persist or have other concerning symptoms. - Post Discharge Activity
[2019-11-18 19:08] LABS: BASO % 0.3 % (0-2.0); EOS % 0.9 % (0-4.5); HEMATOCRIT 47.6 % (35.4-49); LYMPH % 33.2 % (8-40); MCH 28.4 pg (25.7-33.7); MCHC 33.6 g/dl (32.0-35.9); MEAN CELL VOLUME 84.5 fl (80-96); MEAN PLT VOLUME 7.9 fl (7.5-11.1); MONO % 5.8 % (3.8-10.2); NEUT % 59.8 % (42.8-82.8); PLATELET COUNT 279 K/MM3 (134-434); RBC 5.63 M/mm3 (4.00-5.60); RDW 13.8 % (11.9-15.9); WHITE BLOOD COUNT 9.4 K/mm3 (4.0-10.0)
[2019-11-18 19:16] LABS: INR 0.97 (0.83-1.09); PROTHROMBIN TIME (PATIENT) 11.5 SEC (9.7-13.0)
[2019-11-18 19:19] LABS: ACTIVATED PTT 33.8 SECONDS (25.2-36.5)
[2019-11-18 19:37] LABS: BILIRUBIN,TOTAL 0.4 mg/dL (0.2-1); BLOOD UREA NITROGEN 11.5 mg/dL (7-18); CALCIUM 9.1 mg/dL (8.5-10.1); CREATININE 0.9 mg/dL (0.55-1.3); POTASSIUM 3.5 mmol/L (3.5-5.1); TOT PROT 7.4 g/dl (6.4-8.2)
[2019-11-18 21:09] VITALS: BP 135/80; PULSE 70
== END 2019-11-18 21:11 | disposition home or self-care (01) ==
LOC: JER 17:07
DX: K42.9 Umbilical hernia without obstruction or gangrene (principal); Z88.8 Allergy status to other drugs, medicaments and biological substances
CPT/HCPCS: 36415; 74177-TC; 80053; 85025; 85610; 85730; 99282-25; Q9967

== ENCOUNTER 2020-05-20 16:32 | Emergency (ER) | payer SELFPAY ==
--- NOTE | 2020-05-20 16:39 | PDOC ---
Rapid Medical Evaluation Time Seen by Provider: 05/20/20 16:36 Medical Evaluation: Allergies Allergy/AdvReac Type Severity Reaction Status Date / Time methylphenidate HCl AdvReac Verified 04/10/20 16:50 [From Ritalin] 05/20/20 16:36 I performed a brief in-person evaluation of this patient. Pt is a 29 y/o male who presents with poison felicita that started 2 days ago. He works for the [employer]. He was seen 1 month ago for similar. The patient states the rash in on the back of his neck on the right side. H/o asthma as a child. Pertinent physical exam findings: well circumscribed rash with central clearing to the right posterior neck which is more consistent with tinea corporis. No vesicles. I have ordered the following: none Patient to proceed to ED for further evaluation. Discharge Disposition - Diagnosis Rash - Referrals - Patient Instructions - Post Discharge Activity
[2020-05-20 16:44] VITALS: BP 133/82; PULSE 95; TEMP 98.8; BMI 39.5
[2020-05-20] MEDS ORDERED: FAMOTIDINE 20 MG TABLET PO ONE (17:00)
[2020-05-20] MEDS ORDERED: predniSONE 20 MG TABLET (UD) PO ONE (17:00)
[2020-05-20] MEDS ORDERED: FAMOTIDINE 20 MG TABLET ONE (17:01)
[2020-05-20] MEDS ORDERED: predniSONE 20 MG TABLET (UD) ONE (17:02)
--- NOTE | 2020-05-20 17:07 | PDOC ---
History of Present Illness - General Chief Complaint: Rash Stated Complaint: RASH Time Seen by Provider: 05/20/20 16:36 History Source: Patient Exam Limitations: No Limitations - History of Present Illness Initial Comments: 05/20/20 17:03 29-year-old male presents to ED with pruritic rash to his right neck for the past few days now spreading to his back. Patient states works in [employer] for [employer] and has had similar symptoms earlier this season due to his line of work in contact with poison louis. Is this a multiple visit Asthma Patient?: No Timing/Duration: getting worse Severity: mild Associated Symptoms: reports: rash Past History - Travel History Traveled outside of the country in the last 30 days: No Close contact w/someone who was outside of country & ill: No - Medical History Allergies/Adverse Reactions: Allergies Allergy/AdvReac Type Severity Reaction Status Date / Time methylphenidate HCl AdvReac Verified 05/20/20 16:39 [From Ritalin] Home Medications: Ambulatory Orders predniSONE [Deltasone -] 20 mg PO ASDIR #30 tablet 05/07/19 Fexofenadine HCl [Heydi Allergy] 180 mg PO DAILY #10 tablet 04/10/20 predniSONE [Deltasone -] 60 mg PO DAILY 3 Days #9 tablet 04/10/20 Diphenhydramine HCl [Allergy Medication] 25 mg PO TID PRN #21 tablet 05/20/20 predniSONE [Deltasone -] 40 mg PO DAILY #4 tablet 05/20/20 Asthma: Yes COPD: No Other medical history: POISON LOUIS 4 TIMES A YEAR - Immunization History Immunization Up to Date: Yes - Psycho-Social/Smoking History Patient Lives Alone: No Lives with/in: spouse/SO Smoking Status: Yes Smoking History: Never smoked Have you smoked in the past 12 months: Yes Number of Cigarettes Smoked Daily: 5 'Breaking Loose' booklet given: 03/13/16 - Substance Abuse Hx (Audit-C & DAST Scrn) How often the patient has a drink containing alcohol: Never Score: In Men: 4 or > Positive; In Women: 3 or > Positive: 0 Screen Result (Pos requires Nsg. Audit-10AR): Negative Review of Systems - Review of Systems Able to Perform ROS?: No Is the patient limited Bermudian proficient: No Constitutional: No: Symptoms Reported Musculoskeletal: No: Symptoms Reported Integumentary: Yes: Pruritus, Rash Neurological: No: Symptoms reported Hematologic/Lymphatic: No: Symptoms Reported *Physical Exam - Vital Signs Last Vital Signs Temp Pulse Resp BP Pulse Ox 98.8 F 95 H 16 133/82 96 05/20/20 16:39 05/20/20 16:39 05/20/20 16:39 05/20/20 16:39 05/20/20 16:39 - Physical Exam General Appearance: Yes: Nourished, Appropriately Dressed. No: Apparent Distress HEENT: negative: Pale Conjunctivae Integumentary: positive: Rash Neurologic: positive: Motor Strength 5/5 (Ambulatory) Medical Decision Making - Medical Decision Making 05/20/20 17:05 Chief complaint: Pruritic rash to neck now extending to his back. Patient works in [employer] for the [employer] Exam: Patient with cluster of erythematous raised papules to the posterior aspect of right neck surrounding skin intact. Plan: Prednisone here in the ER along with Pepcid. Discharge home with prednisone and Benadryl for treatment of contact dermatitis related to poison louis and similar plants. Discharge - Discharge Information Problems reviewed: Yes Clinical Impression/Diagnosis: Rash, Dermatitis due to plants, including poison louis, sumac, and oak Condition: Good Disposition: HOME - Additional Discharge Information Prescriptions: Diphenhydramine HCl [Allergy Medication] 25 mg PO TID PRN #21 tablet PRN Reason: For Itching predniSONE [Deltasone -] 40 mg PO DAILY #4 tablet - Follow up/Referral - Patient Discharge Instructions Patient Printed Discharge Instructions: Summertime Rashes: Poison [place], [place], and [place] Additional Instructions: Please avoid contact with these plans and if so please wash her hands immediately with soap and water Take medication as prescribed. Start prednisone tomorrow since you were given your first dose here in the ER. - Post Discharge Activity
== END 2020-05-20 17:13 | disposition home or self-care (01) ==
LOC: JER 16:32
DX: R21 Rash and other nonspecific skin eruption (principal)
CPT/HCPCS: 99283-25

== ENCOUNTER 2020-07-17 20:48 | Emergency (ER) | payer SELFPAY ==
[2020-07-17] MEDS ORDERED: DIPHTH,PERTUSS(ACELL),TET 0.5 ML DISP.SYRIN IM ONE ×2 (21:02→21:50)
--- NOTE | 2020-07-17 21:02 | PDOC ---
Rapid Medical Evaluation Time Seen by Provider: 07/17/20 20:59 Medical Evaluation: Allergies Allergy/AdvReac Type Severity Reaction Status Date / Time methylphenidate HCl AdvReac Verified 05/20/20 16:39 [From Ritalin] 07/17/20 20:59 Pt presents for evaluation of laceration to the R ear. Exam: unable to fully examine the ear d/t blood clot. Neurologically intact, NAD Orders: boostrix Pt to proceed to the ER for evaluation Discharge Disposition - Diagnosis Laceration - Discharge Dispostion Disposition: HOME Condition at time of disposition: Stable - Prescriptions Prescriptions: Cephalexin [Keflex] 500 mg PO QID 5 Days #20 capsule - Referrals Referrals: Cristofer Hair MD [Staff Physician] - - Patient Instructions Additional Instructions: Follow-up with ear nose and throat doctor in 48 hours for a wound check. If you are unable to get an appointment return to the emergency room for a wound check in 48 hours. Please take the prophylactic antibiotics as directed Tylenol and Motrin as directed for pain sutures out in 7 days either in the emergency room or by ear nose and throat doctor. Return to the emergency room at any time sooner if you develop any type of problem. - Post Discharge Activity
[2020-07-17 21:03] VITALS: BP 146/85; PULSE 100; TEMP 97.3; BMI 36.5
[2020-07-17] MEDS ORDERED: CEPHALEXIN MONOHYDRATE 500 MG CAPSULE (UD) PO ONE (21:56)
[2020-07-17] MEDS ORDERED: CEPHALEXIN MONOHYDRATE 500 MG CAPSULE (UD) ONE (21:56)
--- NOTE | 2020-07-17 21:57 | PDOC ---
History of Present Illness - General Chief Complaint: Injury Stated Complaint: INJURY Time Seen by Provider: 07/17/20 20:59 - History of Present Illness Initial Comments: 07/17/20 21:54 29-year-old male no comorbidities presents for evaluation of ear laceration. Patient was using a chainsaw with a partner at work when the branch that was cut smacked him in the right ear. No loss of consciousness post injury nausea vomiting or visual changes he had right ear bleeding which was controlled with direct pressure. Past History - Medical History Allergies/Adverse Reactions: Allergies Allergy/AdvReac Type Severity Reaction Status Date / Time methylphenidate HCl AdvReac Verified 05/20/20 16:39 [From Ritalin] Home Medications: Ambulatory Orders predniSONE [Deltasone -] 20 mg PO ASDIR #30 tablet 05/07/19 Fexofenadine HCl [Heydi Allergy] 180 mg PO DAILY #10 tablet 04/10/20 predniSONE [Deltasone -] 60 mg PO DAILY 3 Days #9 tablet 04/10/20 Diphenhydramine HCl [Allergy Medication] 25 mg PO TID PRN #21 tablet 05/20/20 Diphenhydramine HCl [Benadryl -] 25 mg PO Q8H PRN #21 capsule 05/20/20 predniSONE [Deltasone -] 40 mg PO DAILY #4 tablet 05/20/20 predniSONE [Deltasone -] 40 mg PO DAILY #4 tablet 05/20/20 Cephalexin [Keflex] 500 mg PO QID 5 Days #20 capsule 07/17/20 Asthma: Yes COPD: No - Immunization History Immunization Up to Date: Yes - Psycho-Social/Smoking History Smoking Status: Yes Smoking History: Never smoked Have you smoked in the past 12 months: Yes Number of Cigarettes Smoked Daily: 5 'Breaking Loose' booklet given: 03/13/16 - Substance Abuse Hx (Audit-C & DAST Scrn) How often the patient has a drink containing alcohol: Never Score: In Men: 4 or > Positive; In Women: 3 or > Positive: 0 Screen Result (Pos requires Nsg. Audit-10AR): Negative Review of Systems - Review of Systems HEENTM: Yes: See HPI, Ear Pain *Physical Exam - Vital Signs Last Vital Signs Temp Pulse Resp BP Pulse Ox 97.3 F L 100 H 20 146/85 99 07/17/20 20:58 07/17/20 20:58 07/17/20 20:58 07/17/20 20:58 07/17/20 20:58 - Physical Exam 07/17/20 21:54 There is an avulsion and a flap at the antitragus connecting it to the rest of the body of the ear. Ear ear canal and tympanic membrane are normal. The remainder of the external ear pinna and tragus are normal Medical Decision Making - Medical Decision Making 07/17/20 21:55 The area of the laceration was anesthetized with 1% of lidocaine about 3 cc without epinephrine 3 simple 5-0 nylon sutures were placed approximating the edges of the antitragus down to its floor. This was tolerated well. Sutures out in 7 days wound check in 48 hours ENT follow-up Tylenol and Motrin for pain we will also give antibiotics prophylactically Tetanus updated I have reviewed the pathophysiology with the patient. They are in agreement with the treatment plan all questions were answered to their satisfaction. Understanding for follow-up without fail was also conveyed to the patient. Again they are in agreement. Discharge - Discharge Information Problems reviewed: Yes Clinical Impression/Diagnosis: Laceration Condition: Stable Disposition: HOME - Admission No - Follow up/Referral Referrals: Cristofer Hair MD [Staff Physician] - - Patient Discharge Instructions Additional Instructions: Follow-up with ear nose and throat doctor in 48 hours for a wound check. If you are unable to get an appointment return to the emergency room for a wound check in 48 hours. Please take the prophylactic antibiotics as directed Tylenol and Motrin as directed for pain sutures out in 7 days either in the emergency room or by ear nose and throat doctor. Return to the emergency room at any time sooner if you develop any type of problem. - Post Discharge Activity
== END 2020-07-17 22:07 | disposition home or self-care (01) ==
LOC: JERFT 20:48 → JER 20:48 → JERFT 22:07
PROC: 3E0234Z Introduction of Serum, Toxoid and Vaccine into Muscle, Percutaneous Approach (ICD-10-PCS; principal; 2020-07-17)
DX: S01.311A Laceration without foreign body of right ear, initial encounter (principal)
CPT/HCPCS: 90715; 99284-25

== ENCOUNTER 2020-07-24 14:39 | Emergency (ER) | payer OTHER ==
--- NOTE | 2020-07-24 14:57 | PDOC ---
Rapid Medical Evaluation Time Seen by Provider: 07/24/20 14:56 Medical Evaluation: Allergies Allergy/AdvReac Type Severity Reaction Status Date / Time methylphenidate HCl AdvReac Verified 05/20/20 16:39 [From Ritalin] 07/24/20 14:56 Pt presents for evaluation of suture removal Exam: stitches present to the R ear Orders: nothing Pt to proceed to the ER for further evaluation Discharge Disposition - Diagnosis Visit for suture removal - Referrals - Patient Instructions - Post Discharge Activity
[2020-07-24 15:03] VITALS: BP 145/80; PULSE 84; TEMP 97; BMI 36.5
--- NOTE | 2020-07-24 15:50 | PDOC ---
History of Present Illness - General Chief Complaint: Suture/Staple Removal(Here) Stated Complaint: REMOVE STITCHES Time Seen by Provider: 07/24/20 14:56 - History of Present Illness Initial Comments: 07/24/20 15:49 29-year-old male presents for suture removal sutures placed 7 days ago in the right ear for a soft tissue avulsion injury he has had no sequelae since suture placement. Past History - Medical History Allergies/Adverse Reactions: Allergies Allergy/AdvReac Type Severity Reaction Status Date / Time methylphenidate HCl AdvReac Verified 07/24/20 15:03 [From Ritalin] Home Medications: Ambulatory Orders predniSONE [Deltasone -] 20 mg PO ASDIR #30 tablet 05/07/19 Fexofenadine HCl [Heydi Allergy] 180 mg PO DAILY #10 tablet 04/10/20 predniSONE [Deltasone -] 60 mg PO DAILY 3 Days #9 tablet 04/10/20 Diphenhydramine HCl [Allergy Medication] 25 mg PO TID PRN #21 tablet 05/20/20 Diphenhydramine HCl [Benadryl -] 25 mg PO Q8H PRN #21 capsule 05/20/20 predniSONE [Deltasone -] 40 mg PO DAILY #4 tablet 05/20/20 predniSONE [Deltasone -] 40 mg PO DAILY #4 tablet 05/20/20 Cephalexin [Keflex] 500 mg PO QID 5 Days #20 capsule 07/17/20 Asthma: Yes COPD: No - Immunization History Immunization Up to Date: Yes - Psycho-Social/Smoking History Smoking Status: Yes Smoking History: Never smoked Have you smoked in the past 12 months: Yes Number of Cigarettes Smoked Daily: 5 'Breaking Loose' booklet given: 03/13/16 Review of Systems - Review of Systems Constitutional: No: Fever *Physical Exam - Vital Signs Last Vital Signs Temp Pulse Resp BP Pulse Ox 97 F L 84 18 145/80 98 07/24/20 15:01 07/24/20 15:01 07/24/20 15:01 07/24/20 15:01 07/24/20 15:01 - Physical Exam 07/24/20 15:49 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 There is some open areas around the wound. I will bring him back in 2 days for a wound check. Medical Decision Making - Medical Decision Making 07/24/20 15:49 I have reviewed the pathophysiology with the patient. They are in agreement with the treatment plan all questions were answered to their satisfaction. Understanding for follow-up without fail was also conveyed to the patient. Again they are in agreement. ENT follow-up stressed. Discharge - Discharge Information Problems reviewed: Yes Clinical Impression/Diagnosis: Visit for suture removal Condition: Stable Disposition: HOME - Admission No - Follow up/Referral Referrals: Cristofer Hair MD [Staff Physician] - - Patient Discharge Instructions Additional Instructions: Please keep the area clean and dry and return to the emergency room in 48 hours for wound check. Without fail follow-up with ear nose and throat doctor in 1 to 2 days for further evaluation and treatment options. - Post Discharge Activity Work/Back to School Note: Back to Work
--- OUTSIDE RECORDS SUMMARY | 2020-07-24 17:17 | XMS ---
:1990 Author Organization [facility] Care Team Providers Name Role Phone EMERGENCY SERVICE, X Unavailable Unavailable SEJAL LENZ Unavailable Unavailable CHAVEZ, R Unavailable Unavailable Re-disclosure Warning The records that you are about to access may contain information from federally- assisted alcohol or drug abuse programs. If such information is present, then the following federally mandated warning applies: This information has been disclosed to you from records protected by federal confidentiality rules (42 CFR part 2). The federal rules prohibit you from making any further disclosure of this information unless further disclosure is expressly permitted by the written consent of the person to whom it pertains or as otherwise permitted by 42 CFR part 2. A general authorization for the release of medical or other information is NOT sufficient for this purpose. The Federal rules restrict any use of the information to criminally investigate or prosecute any alcohol or drug abuse patient.The records that you are about to access may contain highly sensitive health information, the redisclosure of which is protected by Article 27-F of the [facility] Public Health law. If you continue you may haveaccess to information: Regarding HIV / AIDS; Provided by facilities licensed or operated by the [facility] Office of Mental Health; or Provided by the [facility] Office for People With Developmental Disabilities. If such information is present, then the following [facility] mandated warning applies: This information has been disclosed to you from confidential records which are protected by state law. State law prohibits you from making any further disclosure of this information without the specific written consent of the person to whom it pertains, or as otherwise permitted by law. Any unauthorized further disclosure in violation of state law may result in a fine or [place] health [facility] facility sentence or both. A general authorization for the release of medical or other information is NOT sufficient authorization for further disclosure. Encounters Encounter Providers Location Date Indications Data Source(s ) Outpatient Attender: [id number] 02/14/2020 [facility] MARCIEPRESTON, 11:12:00 AM [facility] Care RAdmitter: [id number] EDT Corpora tion [place] BYRNE Emergency Attender: YOANNA 01/07/2020 JAW PAIN [facility] JAYAttender: 11:47:00 AM Health Care EMERGENCY SERVICE, EDT Corpor ation XAdmitter: ALIVIA LENZY JAW PAIN Medications Medication Brand Start Product Dose Route Administrative Pharmacy [facility] Indications Reaction Description Data Name Date Form Instructions Instructions Source(s) oxyCODONE-A UNK complet oxyCODON E-Ac [place] cetaminophe 2020 MG ed etaminophen r [place] n 5-325 12:54: 5-325 [facility] 31 PM Oral Tablet Care EDT TAKE 1 Corporatio TABLET EVERY n 4 TO 6 HOURS NEEDED FOR PAIN. Dispense: 5 Ibuprofen Ibupro UNK active Ibuprofe n [place] (Motrin) O fen 2020 mg (Motrin) r Cou nty (Motri 12:44: Oral 600 mg [facility] n) O 24 PM PO Care EDT Corporatio n Medication administered onsite Not Taking Not Taking 999 MG UNK completed N ot Taking [facility] Insurance Providers Payer name Policy type Policy ID Covered Covered green party's Policy P elroy / Coverage green party ID relationship to [facility] type [facility] SELF PAY SP INSURANCE PENDING WC/NF [id number] SP [id number] ONLY UNK UNK UNK [place] [id number] [place] [id number] O Medicaid [id number] S [id number] Regular Clinic Visit Problems, Conditions, and Diagnoses Code Display Name Description Problem Type Effective Data Sour ce(s) Dates K02.9 Dental caries, DENTAL CARIES, Diagnosis 02/14/2020 [facility] unspecified UNSPECIFIED 11:12:00 AM [facility] EDT Care Corporati on K08.89 Other specified OTHER SPECIFIED Diagnosis 01/07/2020 [place] disorders of DISORDERS OF 11:47:00 AM [facility] alth teeth and TEETH AND EDT Care Corporati on supporting SUPPORTING structures STRUCTURES V70.0 ROUTINE GENERAL WELL PATIENT Diagnosis 12/29/2018 SUZY Galvan ([facility] MEDICAL VISIT 10:13:45 AM Bhavik EXAMINATION AT A [facility] ) FACILITY Patient Treatment Plan of Care Planned Activity Planned Date Details Description Data Source (s) Ibuprofen (Motrin) O 01/07/2020 12:44:24 [facility] PM EDT Health Care Cor poration
== END 2020-07-24 15:53 | disposition home or self-care (01) ==
LOC: JERFT 14:39
DX: Z48.02 Encounter for removal of sutures (principal)
CPT/HCPCS: 99281-25

== ENCOUNTER 2020-07-26 16:30 | Emergency (ER) | payer OTHER ==
[2020-07-26 16:42] VITALS: BP 128/73; PULSE 97; TEMP 98.2; BMI 36.5
--- NOTE | 2020-07-26 16:42 | PDOC ---
Rapid Medical Evaluation Chief Complaint: Revisit,Wound Recheck Time Seen by Provider: 07/26/20 16:37 Medical Evaluation: Allergies Allergy/AdvReac Type Severity Reaction Status Date / Time methylphenidate HCl AdvReac Verified 07/24/20 15:03 [From Ritalin] 07/26/20 16:39 CC: here for wound revisit- had sutures placed but on last visit were not ready for removal, no difficulty hearing, no dizziness, or fever Exam: noted dried blood on the antitragus,no s/s of infection, sutures in place Plan: FT Discharge Disposition - Diagnosis Visit for suture removal - Referrals - Patient Instructions - Post Discharge Activity
--- NOTE | 2020-07-26 16:52 | PDOC ---
Suture Removal/Wound Check HPI - History of Present Illness Chief Complaint: Revisit,Wound Recheck Stated Complaint: WOUND CARE Time Seen by Provider: 07/26/20 16:37 History Source: Yes: Patient - Previous ED Treatment Type of procedure performed on last visit: Yes: Other (suture removal) Tetanus Immunization: Yes: Up to Date Past History - Medical History Allergies/Adverse Reactions: Allergies Allergy/AdvReac Type Severity Reaction Status Date / Time methylphenidate HCl AdvReac Verified 07/26/20 16:40 [From Ritalin] Home Medications: Ambulatory Orders predniSONE [Deltasone -] 20 mg PO ASDIR #30 tablet 05/07/19 Fexofenadine HCl [Heydi Allergy] 180 mg PO DAILY #10 tablet 04/10/20 predniSONE [Deltasone -] 60 mg PO DAILY 3 Days #9 tablet 04/10/20 Diphenhydramine HCl [Allergy Medication] 25 mg PO TID PRN #21 tablet 05/20/20 Diphenhydramine HCl [Benadryl -] 25 mg PO Q8H PRN #21 capsule 05/20/20 predniSONE [Deltasone -] 40 mg PO DAILY #4 tablet 05/20/20 predniSONE [Deltasone -] 40 mg PO DAILY #4 tablet 05/20/20 Cephalexin [Keflex] 500 mg PO QID 5 Days #20 capsule 07/17/20 Mupirocin Ointment [Bactroban 2% Ointment -] 1 applic TP TID #1 applic 07/26/20 Asthma: Yes COPD: No - Immunization History Immunization Up to Date: Yes - Psycho-Social/Smoking History Smoking Status: Yes Smoking History: Never smoked Have you smoked in the past 12 months: Yes Number of Cigarettes Smoked Daily: 5 Information on smoking cessation initiated: Yes 'Breaking Loose' booklet given: 03/13/16 - Substance Abuse Hx (Audit-C & DAST Scrn) How often the patient has a drink containing alcohol: Never Score: In Men: 4 or > Positive; In Women: 3 or > Positive: 0 Screen Result (Pos requires Nsg. Audit-10AR): Negative In the last yr the pt used illegal drug/Rx for NonMed reason: No Score: Yes response is considered Positive: 0 Screen Result (Positive result requires Nsg. DAST-10): Negative *Review of Systems - Review of Systems Constitutional: No: Chills, Fever *Physical Exam - Vital Signs Last Vital Signs Temp Pulse Resp BP Pulse Ox 98.2 F 97 H 19 128/73 97 07/26/20 16:37 07/26/20 16:37 07/26/20 16:37 07/26/20 16:37 07/26/20 16:37 - Physical Exam General Appearance: Yes: Appropriately Dressed. No: Apparent Distress HEENT: positive: Normal Voice, Other (lac to R canal w/ overlying crust w/ limited erythema and sig ttp, no induration, discharge) Neck: positive: Supple Respiratory/Chest: negative: Respiratory Distress Integumentary: positive: Dry, Warm Neurologic: positive: Fully Oriented, Alert, Normal Mood/Affect Medical Decision Making - Medical Decision Making 07/26/20 16:46 29-year-old male no significant history, initially seen in ED 10 days ago for laceration to R ear and s/p suture removal 2 days ago but told to return today for wound check as there was some open areas around the wound. Pt continues to report pain to site and that OTC meds no longer "working for my pain". No redness, discharge, f/c. Pt well jyothi and stable w/ crust seen to site of wound in R ear canal w/ ?limited erythema and sig ttp, no induration, discharge. Dc w/ bactroban, to return as needed as d/w pt Discharge - Discharge Information Problems reviewed: Yes Clinical Impression/Diagnosis: Visit for wound check Condition: Good Disposition: HOME - Additional Discharge Information Prescriptions: Mupirocin Ointment [Bactroban 2% Ointment -] 1 applic TP TID #1 applic - Follow up/Referral Referrals: Ingrid Corona MD [Primary Care Provider] - - Patient Discharge Instructions Additional Instructions: You were started on topical antibiotic in the case of a mild infection to your right ear wound Apply as directed and return to the ED only if symptoms persist and or worsen - Post Discharge Activity
== END 2020-07-26 17:11 | disposition home or self-care (01) ==
LOC: JERFT 16:30
DX: Z48.00 Encounter for change or removal of nonsurgical wound dressing (principal)
CPT/HCPCS: 99281-25

== ENCOUNTER 2020-11-29 12:05 | Emergency (ER) | payer SELFPAY ==
[2020-11-29 12:14] VITALS: BP 146/86; PULSE 112; TEMP 99; BMI 37.5
[2020-11-29] MEDS ORDERED: ALBUTEROL SO4 HFA INHALER IH ONE ×2 (12:46→12:49)
== END 2020-11-29 13:26 | disposition home or self-care (01) ==
LOC: JER 12:05
DX: U07.1 COVID-19 (principal)
CPT/HCPCS: 71046-TC-FY; 99284-25; C9803; U0003

== ENCOUNTER 2021-02-10 10:14 | Emergency (ER) | payer SELFPAY ==
[2021-02-10 10:25] VITALS: BP 147/93; PULSE 106; TEMP 98.6; BMI 39.5
[2021-02-10] MEDS ORDERED: ACETAMINOPHEN 500 MG TABLET (FP) PO ONE (10:27)
[2021-02-10] MEDS ORDERED: ACETAMINOPHEN 500 MG TABLET (FP) ONE (11:07)
[2021-02-11 07:06] LABS: SARS-CoV-2 NAA Not Detected (Not Detected)
== END 2021-02-10 11:15 | disposition home or self-care (01) ==
LOC: JER 10:14
DX: R09.81 Nasal congestion (principal)
CPT/HCPCS: 87880; 99284-25; C9803; U0003; U0005

== ENCOUNTER 2021-04-21 09:57 | Emergency (ER) | payer SELFPAY ==
[2021-04-21 10:07] VITALS: BP 138/92; PULSE 94; TEMP 98.5; BMI 45.6
[2021-04-21 11:38] LABS: EOS % 1.1 % (0-4.5); HEMATOCRIT 46.6 % (35.4-49); HEMOGLOBIN 15.4 GM/dL (11.7-16.9); LYMPH % 23.4 % (8-40); MCH 27.4 pg (25.7-33.7); MCHC 33.1 g/dl (32.0-35.9); MEAN CELL VOLUME 82.8 fl (80-96); MEAN PLT VOLUME 8.1 fl (7.5-11.1); MONO % 4.2 % (3.8-10.2); NEUT % 67.3 % (42.8-82.8); PLATELET COUNT 261 10^3/uL (134-434); RBC 5.63 M/mm3 (4.00-5.60); RDW 13.9 % (11.9-15.9); WHITE BLOOD COUNT 9.7 K/mm3 (4.0-10.0)
[2021-04-21 12:58] LABS: ANISOCYTOSIS 1+; MACROCYTOSIS 0; PLATELET ESTIMATE NORMAL
== END 2021-04-21 15:06 | disposition home or self-care (01) ==
LOC: JER 09:57
DX: N48.1 Balanitis (principal); K42.9 Umbilical hernia without obstruction or gangrene; K40.20 Bilateral inguinal hernia, without obstruction or gangrene, not specified as recurrent
CPT/HCPCS: 36415; 74177-TC; 85025; 99284-25; C9803; Q9967; U0003; U0005

== ENCOUNTER 2022-10-30 11:12 | Emergency (ER) | payer OTHER ==
[2022-10-30 11:37] VITALS: BP 145/85; PULSE 98; RESP 18; TEMP 99; BMI 44.1
[2022-10-30] MEDS ORDERED: KETOROLAC TROMETHAMINE 30 MG/1 ML VIAL IM ONE (12:45)
[2022-10-30] MEDS ORDERED: KETOROLAC TROMETHAMINE 30 MG/1 ML VIAL ONE (12:53)
== END 2022-10-30 13:09 | disposition home or self-care (01) ==
LOC: JERFT 11:12
PROC: 3E023GC Introduction of Other Therapeutic Substance into Muscle, Percutaneous Approach (ICD-10-PCS; principal; 2022-10-30)
DX: G44.89 Other headache syndrome (principal); K08.89 Other specified disorders of teeth and supporting structures
CPT/HCPCS: 0241U-QW; 99284-25

== ENCOUNTER 2023-01-23 18:51 | Emergency (ER) | payer OTHER ==
[2023-01-23 19:01] VITALS: BP 137/84; PULSE 95; RESP 18; TEMP 98; BMI 47.0
[2023-01-23] MEDS ORDERED: KETOROLAC TROMETHAMINE 30 MG/1 ML VIAL IM ONE (19:54)
[2023-01-23] MEDS ORDERED: KETOROLAC TROMETHAMINE 30 MG/1 ML VIAL ONE (19:57)
== END 2023-01-23 20:56 | disposition home or self-care (01) ==
LOC: JERFT 18:51
PROC: 3E0233Z Introduction of Anti-inflammatory into Muscle, Percutaneous Approach (ICD-10-PCS; principal; 2023-01-23)
DX: M25.512 Pain in left shoulder (principal); M54.2 Cervicalgia; V43.52XA Car driver injured in collision with other type car in traffic accident, initial encounter; Y93.I9 Activity, other involving external motion
CPT/HCPCS: 71046-TC-FY; 73030-TC-LT-FY; 99284-25

== ENCOUNTER 2023-12-15 22:56 | Emergency (ER) | payer OTHER ==
[2023-12-15 23:08] VITALS: BP 136/74; PULSE 119; RESP 20; TEMP 99.5; BMI 42.5
[2023-12-15 23:55] LABS: THROAT:GRP A STREP DETECTED (NOTDETECTED)
[2023-12-16] MEDS ORDERED: AMOXICILLIN 250 MG CAPSULE ONE
[2023-12-16] MEDS: AMOXICILLIN 500 MG CAPSULE (FP) PO ONE
[2023-12-16] MEDS ORDERED: IBUPROFEN 600 MG TABLET (FP) PO ONE (00:03)
[2023-12-16] MEDS: IBUPROFEN 600 MG TABLET (FP) PO ONE (00:04)
== END 2023-12-16 00:33 | disposition home or self-care (01) ==
LOC: JERFT 22:56
DX: J02.0 Streptococcal pharyngitis (principal); R50.9 Fever, unspecified; M79.10 Myalgia, unspecified site; R09.81 Nasal congestion; Z20.822 Contact with and (suspected) exposure to COVID-19
CPT/HCPCS: 0241U-QW; 87651; 99283-25

== ENCOUNTER 2024-04-21 12:17 | Emergency (ER) | payer OTHER ==
[2024-04-21 12:41] VITALS: BP 137/88; PULSE 106; RESP 16; TEMP 98; BMI 39.5
== END 2024-04-21 14:07 | disposition home or self-care (01) ==
LOC: JERFT 12:17
DX: L30.9 Dermatitis, unspecified (principal)
CPT/HCPCS: 99283-25

== ENCOUNTER 2024-10-01 09:29 | Emergency (ER) | payer OTHER ==
[2024-10-01 09:59] VITALS: BP 134/85; PULSE 79; RESP 20; TEMP 97.5; BMI 39.5
[2024-10-01 12:03] LABS: THROAT:GRP A STREP NOT DETECTED (NOTDETECTED)
== END 2024-10-01 13:15 | disposition home or self-care (01) ==
LOC: JERFT 09:29
DX: R05.9 Cough, unspecified (principal); R50.9 Fever, unspecified; J02.9 Acute pharyngitis, unspecified; J06.9 Acute upper respiratory infection, unspecified; Z20.822 Contact with and (suspected) exposure to COVID-19
CPT/HCPCS: 0241U-QW; 87651; 99283-25

== ENCOUNTER 2024-11-19 08:15 | Emergency (ER) | payer OTHER ==
[2024-11-19 08:39] VITALS: BP 140/83; PULSE 85; RESP 18; TEMP 98; BMI 39.5
[2024-11-19] MEDS ORDERED: ACETAMINOPHEN 500 MG TABLET (FP) ONE (09:08)
[2024-11-19] MEDS: ACETAMINOPHEN 500 MG TABLET (FP) PO ONE (09:09)
== END 2024-11-19 11:58 | disposition home or self-care (01) ==
LOC: JER 08:15 → JERFT 08:15
DX: R05.9 Cough, unspecified (principal); J06.9 Acute upper respiratory infection, unspecified; R07.0 Pain in throat; R13.10 Dysphagia, unspecified; Z20.822 Contact with and (suspected) exposure to COVID-19
CPT/HCPCS: 0241U-QW; 87651; 99283-25